=== PATIENT | male | born 1965 | race Caucasian/White ===

== ENCOUNTER 2018-04-30 12:45 | Emergency (ER) | payer SELFPAY ==
[~2018-04-30] VITALS: Ht 172.7 cm; Wt 100.0 kg
[2018-04-30 13:37] LABS: CHLORIDE 107 mEq/L (99-109); POTASSIUM 4.3 mEq/L (3.7-5.4); SODIUM 140 mEq/L (136-147)
[2018-04-30 13:38] LABS: GLUCOSE 124 mg/dL (70-99)
[2018-04-30 13:42] LABS: CREATININE 0.9 mg/dL (0.6-1.3); GFR ESTIMATE (CALCULATED) > 59 mL/min/ (58.99-99999)
[2018-04-30 13:43] LABS: UREA NITROGEN (BUN) 18 mg/dL (9-23)
[2018-04-30 13:44] LABS: HEMATOCRIT 46.9 % (38.0-50.0); HEMOGLOBIN 17.1 G/DL (12.5-16.6); MCH 32.3 PG (29.0-34.0); MCHC 36.5 G/DL (30.0-36.0); MCV 88.7 FL (86-99); PLATELET COUNT 252 K/uL (156-360); RBC DIS.WIDTH-CV 12.6 % (11.8-14.6); RBC DIS.WIDTH-SD 41.1 % (39-53); RED BLOOD COUNT 5.29 M/uL (4.00-5.50); WHITE BLOOD COUNT 8.4 K/uL (4.1-10.2)
[2018-04-30 13:47] LABS: TROP-I INTERPRETATION NEGATIVE; TROPONIN-I < 0.01 ng/mL (0.0-0.30)
[2018-04-30] MEDS ORDERED: CLEOCIN300 MG PO (14:56)
[2018-04-30] MEDS ORDERED: PERCOCET 5/31 TABLET PO (14:58)
[2018-04-30 15:17] VITALS: BP 139/98
== END 2018-04-30 15:17 | disposition home or self-care (01) ==
LOC: EME 12:45
DX: L03.114 Cellulitis of left upper limb (principal); M54.9 Dorsalgia, unspecified; G89.29 Other chronic pain; R94.31 Abnormal electrocardiogram [ECG] [EKG]; Z87.01 Personal history of pneumonia (recurrent); F17.200 Nicotine dependence, unspecified, uncomplicated
CPT/HCPCS: 71046; 80048; 84484; 85027; 93005; 99281; 99285; J2270